=== PATIENT | male | born 1950 | race Hispanic/Latino ===

== ENCOUNTER 2017-11-22 12:25 | Inpatient (IN) | payer MEDICARE, MEDICAID ==
[2017-11-22 13:49] LABS: #Lymphocytes 0.8 thou/uL (1.20-3.40); #Neutrophils 10.1 thou/uL (1.40-6.50); %Basophils 0.1 % (0.0-1.0); %Eosinophils 0.1 % (0.0-10.0); %Lymphocytes 6.8 % (21.0-51.0); Hemoglobin 10.9 g/dL (14.0-18.0); Mean Corpuscular HGB CONC 31.2 g/dL (32.0-36.0); Mean Corpuscular Hemoglobin 31.5 pg (27.0-31.0); Mean Platelet Volume 6.6 fL (7.4-10.4); Platelet Count 221 thou/uL (130-400); RBC Distribution Width 11.6 % (11.5-14.5); Red Blood Cell (RBC) Count 3.46 mill/uL (4.70-6.10); White Blood Cell (WBC) Count 11.9 thou/uL (4.8-10.8)
[2017-11-22 14:12] LABS: ALT (SGPT) 18 U/L (8-55); AST (SGOT) 26 U/L (5-34); Albumin 3.6 g/dL (3.4-4.8); Alkaline Phosphatase 70 U/L (40-150); Anion Gap 14 mmol/L (10-20); BUN (Urea Nitrogen) 24 mg/dL (8.4-25.7); Bilirubin, Total 0.8 mg/dL (0.2-1.2); Calc. Creatinine Clearance 0 mL/min (70-130); Calcium 8.7 mg/dL (7.8-10.44); Carbon Dioxide 25 mmol/L (23-31); Chloride 103 mmol/L (98-107); Estimated GFR-MDRD 52; Globulin 3.6 g/dL (2.4-3.5); Glucose 111 mg/dL (80-115); Potassium 4.1 mmol/L (3.5-5.1); Protein, Total 7.2 g/dL (5.8-8.1); Sodium 138 mmol/L (136-145)
[2017-11-22] MEDS ORDERED: Acetaminophen 325 MG TAB PER TUBE PRN (15:54)
[2017-11-22] MEDS ORDERED: Lorazepam 2 MG/ML VIAL SLOW IVP PRN (15:54)
[2017-11-22] MEDS ORDERED: hydrALAZINE 20 MG/ML VIAL SLOW IVP PRN (15:54)
[2017-11-22] MEDS ORDERED: Ondansetron PF 4 MG/2 ML Vial IVP PRN (15:54)
[2017-11-22] MEDS ORDERED: VANCOMYCIN IVPB PRN (16:03)
[2017-11-22] MEDS: Sodium Chloride 0.9% 1,000 ML IV SCH (16:19)
[2017-11-22 16:20] VITALS: BMI 31.1
[2017-11-22] MEDS: Piperacillin/Tazobactam 3.375 GM in Sodium Chloride 0.9% 100 ML IVPB SCH (17:54)
--- NOTE | 2017-11-22 18:06 | HP ---
PRIMARY CARE PHYSICIAN: Dr. Yvette Marquez. CHIEF COMPLAINT: Cough, hypoxia and fever. HISTORY OF PRESENT ILLNESS: Mr. Kenney is a 67-year-old gentleman who was sent over from the [facility] after he was found to be hypoxic. He is reported to have been coughing and his O2 sa turations were in the 84% on room air. The patient apparently was suctioned and had quite a bit of p hlegm and he is being admitted for possible aspiration pneumonia. Otherwise, the patient is basicall y nonverbal and there is no family at the bedside to offer any additional history. The patient can m umble and say a few words, but is completely disoriented. REVIEW OF SYSTEMS: Also unobtainable. PAST MEDICAL HISTORY: This is pieced from the records that were sent over from the [facility] summary and includes paranoid schizophrenia, Parkinson's disease, dementia, gastroesophage al reflux disease. PAST SURGICAL HISTORY: He has a PEG tube and he looks like he has a midline abdominal scar and a col ostomy, the etiology of which is unknown. ALLERGIES: No known drug allergies. SOCIAL HISTORY: He has never been a smoker, does not drink. It appears his daughter by the name of Vidhya Mendoza has signed most of the paperwork and offered the history in the summary. FAMILY HISTORY: Unobtainable. MEDICATIONS: These are taken from the emergency room records and include Tylenol 325 mg 2 tubes lena y, benztropine 0.5 mg per tube daily, carbidopa/levodopa 25/100 per G-tube 3 times a day, docusate so dium 100 mg daily, DuoNebs p.r.n., famotidine 40 mg per tube daily, Risperdal 1 mg daily, and Robitus sin as needed. PHYSICAL EXAMINATION: GENERAL: He is again disoriented. He is well-developed, well-nourished. He does not appear to be i n any distress. VITAL SIGNS: Blood pressure was 96/70, heart rate 84, respiratory rate is 16, temperature is 99.2. HEENT: Pupils are reactive. Throat: He has got dry mucous membranes and poor dentition. NECK: No adenopathy, no bruits. LUNGS: Coarse breath sounds. CARDIOVASCULAR: He has a normal S1, S2. I did not appreciate an S3 or S4. No murmurs, clicks or ru bs. ABDOMEN: Soft, it is nontender, nondistended. He has a midline abdominal scar, a colostomy tube. NEUROLOGIC: He does have a resting tremor and sometimes an essential tremor as well. He does have a flat affect. LABORATORY DATA AND IMAGING: Chest x-ray, I do not have a copy, but from the record that was reporte d as being normal, no infiltrates, normal heart size and normal mediastinum. There was a KUB that is reported as having no small-bowel obstruction. His sodium was 136, potassium 4.0, chloride is 105, CO2 is 21, BUN of 23, creatinine 1.4, glucose was 116, troponin 0.013. White blood cell count is 9.4 9, hemoglobin 10.3, hematocrit is 29.7, platelet count is 188. Urinalysis was negative. ASSESSMENT AND PLAN: This is a 67-year-old gentleman with advanced dementia that was sent over from the retirement due to what appears to be hypoxia as well as congestion, and fever. He is suspected of having aspiration pneumonia. In reviewing his records, it appears as if he receives not only PEG tube feedings nocturnally, but apparently it appears as if he is allowed to eat a pureed diet by damari th during the day, so he is at risk for aspiration, especially given what appears to be fairly advanc ed dementia and Parkinson's disease. Since he is coming from the retirement, we will need to cover him for hospital-acquired or healthcare-associated pneumonia. It is also mentioned in the records t hat he is being treated for flu, which he had contracted in the last week and he is currently on Radha flu. Therefore, he will be admitted to the medical floor, started on some IV resuscitation due to th e borderline blood pressure. We will start him on vancomycin and Zosyn initially. Place him on tube feedings only. We will likely need to get a dietitian consult to help determine the goal rate and p jose formula. Continue his usual medications for Parkinson's disease and his psychiatric disorders.
[2017-11-22] MEDS: Vancomycin HCl 1.25 GM in Sodium Chloride 0.9% 250 ML 250 ML IVPB SCH (18:31)
[2017-11-22] MEDS: Famotidine 20 MG TAB PER TUBE SCH (19:07)
[2017-11-22] MEDS ORDERED: Vancomycin HCl 1 GM in Premix Bag 1 BAG IVPB SCH (21:00)
[2017-11-23] MEDS: Piperacillin/Tazobactam 3.375 GM in Sodium Chloride 0.9% 100 ML IVPB SCH ×4 (00:08→18:10)
[2017-11-23] MEDS: Sodium Chloride 0.9% 1,000 ML IV SCH ×2 (02:40→11:13)
[2017-11-23 05:54] LABS: #Basophils 0.1 thou/uL (0.0-0.2); #Eosinphils 0.1 thou/uL (0.0-0.7); #Lymphocytes 1.2 thou/uL (1.20-3.40); #Monocytes 0.8 thou/uL (0.11-0.59); #Neutrophils 10.4 thou/uL (1.40-6.50); %Basophils 0.4 % (0.0-1.0); %Eosinophils 0.5 % (0.0-10.0); %Lymphocytes 9.3 % (21.0-51.0); %Monocytes 6.6 % (0.0-10.0); %Neutrophils 83.3 % (42.0-75.0); Hemoglobin 9.6 g/dL (14.0-18.0); Mean Corpuscular HGB CONC 32.7 g/dL (32.0-36.0); Mean Corpuscular Hemoglobin 32.1 pg (27.0-31.0); Mean Corpuscular Volume 98.3 fl (80.0-94.0); Platelet Count 198 thou/uL (130-400); RBC Distribution Width 11.4 % (11.5-14.5); White Blood Cell (WBC) Count 12.4 thou/uL (4.8-10.8)
[2017-11-23 06:35] LABS: Anion Gap 10 mmol/L (10-20); BUN (Urea Nitrogen) 26 mg/dL (8.4-25.7); Calc. Creatinine Clearance 71 mL/min (70-130); Calcium 8.4 mg/dL (7.8-10.44); Carbon Dioxide 24 mmol/L (23-31); Chloride 108 mmol/L (98-107); Estimated GFR-MDRD 61; Glucose 86 mg/dL (80-115); Potassium 3.9 mmol/L (3.5-5.1); Sodium 138 mmol/L (136-145)
[2017-11-23] MEDS: Enoxaparin Sodium 30 MG/0.3 ML SYRINGE SC SCH (09:04)
[2017-11-23] MEDS: Famotidine 20 MG TAB PER TUBE SCH ×2 (10:04→22:15)
--- NOTE | 2017-11-23 13:18 | PDOC.PN ---
- Subjective Encounter Start Date: 11/23/17 Encounter Start Time: 13:16 Mr. Kenney is more responsive today. He says he feels bad. He is able to talking in 3-4 word phrases. - Objective Resuscitation Status: Resuscitation Status FULL:Full Resuscitation MAR Reviewed: Yes Vital Signs & Weight: Vital Signs (12 hours) Temp Pulse Resp BP Pulse Ox 11/23/17 11:34 99.1 F 56 L 16 128/76 100 11/23/17 07:45 98.4 F 62 18 100/61 100 11/23/17 07:23 98.9 F 70 18 11/23/17 05:01 98.9 F 70 18 95/55 L 99 Weight Weight 181 lb 10.574 oz I&O: 11/22/17 11/23/17 11/24/17 06:59 06:59 06:59 Output Total 400 Balance -400 Result Diagrams: 11/23/17 05:10 11/23/17 05:11 Phys Exam - Physical Examination HEENT: PERRLA Respiratory: no wheezing + rales at the bases, no wheezing or rhonchi Cardiovascular: RRR, no significant murmur, no rub Gastrointestinal: soft, non-tender, positive bowel sounds Musculoskeletal: no edema Dx/Plan (1) Pneumonia, aspiration Code(s): J69.0 - PNEUMONITIS DUE TO INHALATION OF FOOD AND VOMIT Status: Acute (2) Dementia Code(s): F03.90 - UNSPECIFIED DEMENTIA WITHOUT BEHAVIORAL DISTURBANCE Status: Chronic (3) Parkinson's disease dementia Code(s): G20 - PARKINSON'S DISEASE; F02.80 - DEMENTIA IN OTH DISEASES CLASSD ELSWHR W/O BEHAVRL DISTURB Status: Chronic (4) Dysphagia Code(s): R13.10 - DYSPHAGIA, UNSPECIFIED Status: Chronic - Plan * Pneumonia- Healthcare Associated vs. Aspiration- I suspect more likely to be aspiration- Discussed with Speech Therapist- he is at high risk for aspiration with an oral diet. He sounds very gurgerly when I see him.- will not allow anything by mouth, and use the PEG tube only * Continue Zosyn and Vancomycin IV, however believe we can discontinue the Vancomycin soon * Start tube feeding * Keep the HOB elevated when ever possible * repeat CXR in a few days
[2017-11-23] MEDS: Vancomycin HCl 1.25 GM in Sodium Chloride 0.9% 250 ML 250 ML IVPB SCH (19:00)
[2017-11-24] MEDS: Piperacillin/Tazobactam 3.375 GM in Sodium Chloride 0.9% 100 ML IVPB SCH ×4 (00:29→17:21)
[2017-11-24 06:01] LABS: #Eosinphils 0.3 thou/uL (0.0-0.7); #Lymphocytes 1.2 thou/uL (1.20-3.40); #Monocytes 0.7 thou/uL (0.11-0.59); #Neutrophils 5.3 thou/uL (1.40-6.50); %Basophils 0.6 % (0.0-1.0); %Eosinophils 4.3 % (0.0-10.0); %Lymphocytes 16.3 % (21.0-51.0); %Monocytes 9.6 % (0.0-10.0); %Neutrophils 69.3 % (42.0-75.0); Hemoglobin 9.5 g/dL (14.0-18.0); Mean Corpuscular Hemoglobin 31.4 pg (27.0-31.0); Mean Corpuscular Volume 98.1 fl (80.0-94.0); Mean Platelet Volume 7.1 fL (7.4-10.4); Platelet Count 203 thou/uL (130-400); RBC Distribution Width 11.3 % (11.5-14.5); Red Blood Cell (RBC) Count 3.02 mill/uL (4.70-6.10); White Blood Cell (WBC) Count 7.6 thou/uL (4.8-10.8)
[2017-11-24 06:20] LABS: Anion Gap 7 mmol/L (10-20); BUN (Urea Nitrogen) 23 mg/dL (8.4-25.7); Calc. Creatinine Clearance 83 mL/min (70-130); Calcium 8.6 mg/dL (7.8-10.44); Carbon Dioxide 26 mmol/L (23-31); Chloride 112 mmol/L (98-107); Estimated GFR-MDRD 73; Glucose 118 mg/dL (80-115); Potassium 3.5 mmol/L (3.5-5.1); Sodium 141 mmol/L (136-145)
[2017-11-24] MEDS: Enoxaparin Sodium 30 MG/0.3 ML SYRINGE SC SCH (08:31)
[2017-11-24] MEDS: Famotidine 20 MG TAB PER TUBE SCH ×2 (08:32→21:03)
[2017-11-24] MEDS: Sodium Chloride 0.9% 1,000 ML IV SCH ×2 (08:39→17:25)
--- NOTE | 2017-11-24 11:55 | PDOC.PN ---
- Subjective Encounter Start Date: 11/24/17 Encounter Start Time: 11:53 Mr. Kenney was seen today in follow-up. He is awake and alert. He says he feels a little better. He still has a bit of upper airway noise. - Objective Resuscitation Status: Resuscitation Status FULL:Full Resuscitation MAR Reviewed: Yes Vital Signs & Weight: Vital Signs (12 hours) Temp Pulse Resp BP Pulse Ox 11/24/17 11:37 97.9 F 53 L 16 154/75 H 99 11/24/17 08:45 97.8 F 49 L 16 131/72 98 11/24/17 08:00 97.8 F 49 L 16 98 11/24/17 04:36 44 L 11/24/17 03:00 55 L Weight Admit Weight 181 lb Weight 181 lb 10.574 oz I&O: 11/23/17 11/24/17 11/25/17 06:59 06:59 06:59 Intake Total 90 1700 Output Total 534 434 1849 Balance -400 -110 200 Result Diagrams: 11/24/17 05:40 11/24/17 05:40 Phys Exam - Physical Examination HEENT: PERRLA + rhonchi- bilaterally, no rales Cardiovascular: RRR, no significant murmur Gastrointestinal: soft, non-tender, positive bowel sounds Musculoskeletal: no edema Dx/Plan (1) Pneumonia, aspiration Code(s): J69.0 - PNEUMONITIS DUE TO INHALATION OF FOOD AND VOMIT Status: Acute (2) Dementia Code(s): F03.90 - UNSPECIFIED DEMENTIA WITHOUT BEHAVIORAL DISTURBANCE Status: Chronic (3) Parkinson's disease dementia Code(s): G20 - PARKINSON'S DISEASE; F02.80 - DEMENTIA IN OTH DISEASES CLASSD ELSWHR W/O BEHAVRL DISTURB Status: Chronic (4) Dysphagia Code(s): R13.10 - DYSPHAGIA, UNSPECIFIED Status: Chronic - Plan * Pneumonia- suspected due to aspiration- will continue Zosyn, and repeat a Chest Xray in the AM * He still has difficulty clearing his secretion, and as a result he is still at risk for aspiration even without taking anything by mouth * Bradycardia- ? etiology- will monitor * Dementia- stable * Parkinson's Disease- stable
--- NOTE | 2017-11-24 12:16 | PDOC.EVN ---
Event Note - Event Note Event Note: I called the patient's , Mrs. Carolann Kenney, and updated her on his condition. It appears he has had a staedy decline over the past few years, and more specifically after he was diagnosed and treated for Prostate cancer. She said following that his " colon stopped working, and they had to place a colostomy. She lives in [place], and has not been able to visit him recently. She would like to have the code status changed to DNR.
[2017-11-24 17:48] LABS: Vancomycin, Trough 8.2 ug/mL
[2017-11-24] MEDS: Vancomycin HCl 1.25 GM in Sodium Chloride 0.9% 250 ML 250 ML IVPB SCH (18:31)
[2017-11-24] MEDS: Vancomycin HCl 1 GM in Premix Bag 1 BAG IVPB SCH (20:58)
[2017-11-25] MEDS: Sodium Chloride 0.9% 1,000 ML IV SCH ×3 (00:23→20:03)
[2017-11-25] MEDS: Piperacillin/Tazobactam 3.375 GM in Sodium Chloride 0.9% 100 ML IVPB SCH ×4 (00:24→17:54)
[2017-11-25] MEDS: Vancomycin HCl 1 GM in Premix Bag 1 BAG IVPB SCH (08:15)
[2017-11-25] MEDS: Enoxaparin Sodium 30 MG/0.3 ML SYRINGE SC SCH (08:16)
[2017-11-25] MEDS: Famotidine 20 MG TAB PER TUBE SCH ×2 (08:16→19:51)
--- NOTE | 2017-11-25 14:03 | PDOC.PN ---
- Subjective Encounter Start Date: 11/25/17 Encounter Start Time: 14:01 Mr. Kenney was seen today in follow-up. He was trying to get out of bed, and was saying he wants to go home. - Objective Resuscitation Status: Resuscitation Status DNR:Do Not Resuscitate MAR Reviewed: Yes Vital Signs & Weight: Vital Signs (12 hours) Temp Pulse Resp BP Pulse Ox 11/25/17 04:00 98.7 F 53 L 18 112/58 L 98 Weight Admit Weight 181 lb Weight 181 lb 10.574 oz I&O: 11/24/17 11/25/17 11/26/17 06:59 06:59 06:59 Intake Total 90 1760 Output Total 200 2720 Balance -110 -960 Result Diagrams: 11/24/17 05:40 11/24/17 05:40 Phys Exam - Physical Examination HEENT: PERRLA Respiratory: no wheezing, no rales, no rhonchi, clear to auscultation bilateral Cardiovascular: RRR, no significant murmur, no rub Gastrointestinal: soft, non-tender, positive bowel sounds Musculoskeletal: no edema Dx/Plan (1) Pneumonia, aspiration Code(s): J69.0 - PNEUMONITIS DUE TO INHALATION OF FOOD AND VOMIT Status: Acute (2) Dementia Code(s): F03.90 - UNSPECIFIED DEMENTIA WITHOUT BEHAVIORAL DISTURBANCE Status: Chronic (3) Parkinson's disease dementia Code(s): G20 - PARKINSON'S DISEASE; F02.80 - DEMENTIA IN OTH DISEASES CLASSD ELSWHR W/O BEHAVRL DISTURB Status: Chronic (4) Dysphagia Code(s): R13.10 - DYSPHAGIA, UNSPECIFIED Status: Chronic - Plan * Pneumonia- continue Zosyn, will discontinue Vancomycin * Check Chest X- ray * Parkinson's Disease- advanced but stable * If X-ray has not changed , then consider transition to antibiotic via PEG, such as Augmentin, and transfer back to [place]. * Orders to NH should be to not feed patient by mouth, and only use PEG tube
--- NOTE | 2017-11-25 15:17 | RAD ---
ONE VIEW CHEST: History: Influenza. Suspected aspiration pneumonia. Comparison: None. FINDINGS: Portable upright chest demonstrates atherosclerosis of the aorta. Normal cardiac silhouette. The pulm onary vessels and hilum are normal. Costophrenic angles are clear. No consolidation or mass. No pneum othorax or osseous abnormalities. Left and right vagal nerve stimulators are noted and incompletely evaluated. IMPRESSION: 1. No acute cardiopulmonary process. 2. Atherosclerosis of the aorta. POS: [facility]
[2017-11-26] MEDS: Piperacillin/Tazobactam 3.375 GM in Sodium Chloride 0.9% 100 ML IVPB SCH ×3 (00:19→12:39)
[2017-11-26] MEDS: Sodium Chloride 0.9% 1,000 ML IV SCH (07:07)
[2017-11-26] MEDS: Enoxaparin Sodium 30 MG/0.3 ML SYRINGE SC SCH (07:57)
[2017-11-26] MEDS: Famotidine 20 MG TAB PER TUBE SCH (07:58)
[2017-11-26 08:07] VITALS: BP 126/58; TEMP 98.1
--- NOTE | 2017-11-26 13:23 | DIS ---
DATE OF ADMISSION: 11/22/2017 DATE OF DISCHARGE: 11/26/2017 DISCHARGE DIAGNOSES: 1. Aspiration pneumonia. 2. Metabolic encephalopathy. 3. Dementia. 4. Parkinson's disease. 5. Oropharyngeal dysphagia. CONSULTATIONS: None. PROCEDURES: None. HISTORY AND PHYSICAL: Mr. Kenney is a 67-year-old gentleman, who is a long term resident at [facility] in [place] and was reported to have coughing and decreased oxygen saturation on the day of admission and possibly febrile. He was sent to the emergency department for evaluation in [place], where he was found to be hypoxic. He was transferred to our facility for further evaluation. HOSPITAL COURSE: The patient was seen and examined by Dr. Steele and admitted to the hospital. He w as started on vancomycin and Zosyn initially for aspiration pneumonia and the vancomycin was disconti nued. He was given IV fluids and tube feeds and made n.p.o. His medicines were given via tube. Overnight 11/22/2017 to 11/23/2017, patient was feeling bad, but was able to talk in 3-4 words, and w as more responsive. Speech therapist evaluated and felt he was a high risk with oral diet and placed him on tube feeds only. He was continued on the antibiotics. By 11/24/2017, patient seemed even more alert. Feeling a little bit better and was tired with some w ith upper airway gurgling. We continued on current treatment through 11/25/2017. The day, 11/26/2017, mental status is stable. He will wake up and answer simple questions in short w ord phrases. He is tolerating his tube feeds. The head of his bed has been kept at 30 degrees, and he is transitioned to p.o. Augmentin, and he was stable for discharge back to the long term. Blood cultures taken from admission were positive for various Streptococci, felt to be a contaminant. Repeats were obtained prior to discharge that were negative at the time of discharge. PHYSICAL EXAMINATION: The patient was seen and examined on the day of discharge Discharge plan and disposition were entered in chart. DISCHARGE MEDICATIONS: 1. Tylenol 650 mg per tube every 6 hours as needed. 2. Augmentin 100 mg p.o. q.12 hours for 10 days. 3. Benztropine 0.5 mg per tube b.i.d. 4. Carbidopa/levodopa 25/100 one tab per tube t.i.d. 5. Docusate 50 mg per tube daily. 6. Famotidine 40 mg per tube daily. 7. Guaifenesin DM 100/10, 10 mL q.6 hours per tube as needed. 8. DuoNeb q.6 hours as needed. 9. Risperidone 1 mg per tube at bedtime. 10. Scopolamine patch, transdermal 1 patch behind the ear every 3 days for secretions. FOLLOWUP APPOINTMENTS: Primary care physician within a week. DISCHARGE DIET: Tube feeding to continue 65 mL per hour as in the hospital, nothing per mouth. DISCHARGE CONDITION: Stable. DISPOSITION: The patient will be transferred back to [facility] in [place].
--- NOTE | 2017-12-04 10:52 | EKG ---
Test Reason : STAT Blood Pressure : / mmHG Vent. Rate : 047 BPM Atrial Rate : 047 BPM P-R Int : 106 ms QRS Dur : 128 ms QT Int : 466 ms P-R-T Axes : 023 -17 001 degrees QTc Int : 412 ms Sinus bradycardia with short [place] Right bundle branch block Abnormal ECG No previous ECGs available Confirmed by VANNA HOWE ([id number]) on 12/04/2017 10:52:18 AM Referred By: Confirmed By:VANNA HOWE
== END 2017-11-26 16:35 | DRG 177 ==
LOC: ERS 12:25 → T4-A 13:25
PROVIDERS: ADMIT Internal Medicine; ATTEND Internal Medicine
DX: J69.0 Pneumonitis due to inhalation of food and vomit (principal); G93.41 Metabolic encephalopathy; L89.151 Pressure ulcer of sacral region, stage 1; G20 Parkinson's disease; F02.80 Dementia in other diseases classified elsewhere, unspecified severity, without behavioral disturbance, psychotic disturbance, mood disturbance, and anxiety; C61 Malignant neoplasm of prostate; R13.12 Dysphagia, oropharyngeal phase; F03.90 Unspecified dementia, unspecified severity, without behavioral disturbance, psychotic disturbance, mood disturbance, and anxiety; Z66 Do not resuscitate; Z74.01 Bed confinement status
CPT/HCPCS: 36415; 36416; 71045; 80048; 80053; 80202; 83605; 85025; 93005; 93010; 99285; G8996-GN-CN; G8997-GN-CN; J1650; J2060; J2543; J3370; J7050

== ENCOUNTER 2017-12-08 06:47 | Emergency (ER) | payer MEDICARE, MEDICAID ==
--- NOTE | 2017-12-08 15:21 | RAD ---
ABDOMEN 1 VIEW: Date: 12/08/17 HISTORY: Nausea and vomiting. PEG tube replacement. FINDINGS: There is contrast in the stomach and duodenum, and presence of a PEG tube. The bowel gas pattern is u nremarkable. IMPRESSION: Appropriate positioning and patency of the PEG tube. POS: [facility]
--- NOTE | 2017-12-08 20:29 | OP ---
PREOPERATIVE DIAGNOSIS: Dislodged PEG tube, unable to place it by the ER physician. POSTOPERATIVE DIAGNOSIS: Dislodged PEG tube, unable to place it by the ER physician. PROCEDURE: Serial dilatation using urethral dilators left upper quadrant wound with replacement of P EG tubing in confirmatory x-ray noting good placement. Balloon was inflated with 30 mL of water. Patient can be discharged back to the snf and discuss with the emergency room physician.
--- NOTE | 2017-12-08 21:35 | HP ---
Ottoniel Kenney is a 67-year-old male, intermediate resident, admitted full code, seen in [place] for dislodged PEG tube. Apparently, 14 gauge Angiocath placed in the left upper quadrant abdominal wall defect and was sent to [facility] where ER physician tried to replace the PEG tube, bella salmon ot. I was called to evaluate him. He had a small opening in his left upper quadrant. How long the PEG tube had been out is unknown. The PEG tube has been present for many months, however. There are no records in this hospital that tube being placed at this facility. has been contacted and sh e desires everything be done for the patient to reestablish the feeding tube. Performed at the [facility] if possible and perform PEG tube if necessary today.
== END 2017-12-08 15:25 | disposition home or self-care (01) ==
LOC: ERS 06:47
DX: Z43.1 Encounter for attention to gastrostomy (principal); K21.9 Gastro-esophageal reflux disease without esophagitis; F03.90 Unspecified dementia, unspecified severity, without behavioral disturbance, psychotic disturbance, mood disturbance, and anxiety; J40 Bronchitis, not specified as acute or chronic; G20 Parkinson's disease; F20.9 Schizophrenia, unspecified; F32.9 Major depressive disorder, single episode, unspecified; Z79.899 Other long term (current) drug therapy
CPT/HCPCS: 74018